=== PATIENT | male | born 1935 | race Caucasian/White ===

== ENCOUNTER → 2018-02-05 10:41 | Outpatient (CLI) | payer MEDICARE, OTHER, SELFPAY ==
[2018-02-05 11:59] LABS: BUN Creatinine Ratio 26.2 (6-22); Blood Urea Nitrogen 34 mg/dL (9-20); Calcium 9.6 mg/dL (8.4-10.2); Carbon Dioxide 27 mmol/L (22-32); Chloride 99 mmol/L (98-107); Estimated Glomerular Filt Rate 53.1 mL/min (>60); Glucose 388 mg/dL (80-110); HEMOLYSIS < 15 (0-50); Potassium 4.9 mmol/L (3.4-5.1); Sodium 138 mmol/L (137-145)
[2018-02-05 12:02] LABS: Hemoglobin A1C% w Est Avg Glu 10.6 % (4.0-6.0)
== END ==
PROVIDERS: PCP Internal Medicine; Visit Provider Internal Medicine
DX: E11.9 Type 2 diabetes mellitus without complications (principal)
CPT/HCPCS: 36415; 80048; 83036

== ENCOUNTER → 2018-12-28 15:39 | Outpatient (CLI) | payer MEDICARE, OTHER, SELFPAY ==
--- NOTE | 2018-12-28 | DI.MRI.S_ITS ---
PROCEDURE: MR RUN OFF 3 STAGES ABD START INDICATIONS: Cramp and spasm in left calf TECHNIQUE: Precontrast axial and coronal TruFISP acquired through the abdomen and pelvis. Multi-station dynamic coronal MRA using Care Bolus timing from the kidneys to the ankles during the administration of contrast, with 3-dimensional maximum intensity projection (MIP) reformats constructed. COMPARISON: None. FINDINGS: Image quality: Excellent. ABDOMEN: Aorta: Aorta is normal in caliber and is patent. Renal arteries: Renal arteries all appear patent. Extravascular soft tissues: Visualized solid organs are normal in size on limited pre-contrast images. Bowel loops are normal in caliber. No free fluid. No retroperitoneal or mesenteric adenopathy by size criteria. No ventral hernias. Bones: Marrow demonstrates normal overall signal. PELVIS AND BILATERAL LOWER EXTREMITIES: Right sided vessels: Common and external iliac arteries are patent. 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 Common and profunda femoral arteries are patent. There are mild multifocal stenoses of the mid and distal superficial femoral artery. Multifocal moderate stenoses of the above end below knee popliteal artery are present. The runoff vessels are not well seen secondary to motion artifact. Left sided vessels: Common and internal iliac arteries are patent. External iliac artery demonstrates mild stenosis proximally, and is otherwise patent. The common and profunda femoral arteries are patent. There is a high-grade focal stenosis within the distal left superficial femoral artery. There is a high-grade focal stenosis within the below knee popliteal artery. Above-knee popliteal artery is patent. Runoff vessels are not well-seen secondary to motion artifact. IMPRESSION: 1. No significant inflow stenosis bilaterally. 2. 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 These would be amenable to percutaneous endovascular therapy, if clinically indicated. Findings discussed with Dr. Spicer's medical billing assistant on 12.28.18 at 1655 hrs. Dictated by: Imani Macias M.D. on 12/28/2018 at 17:01 Approved by: Imani Macias M.D. on 12/28/2018 at 17:01
== END ==
PROVIDERS: PCP Internal Medicine; Visit Provider Internal Medicine
DX: R25.2 Cramp and spasm (principal); I70.203 Unspecified atherosclerosis of native arteries of extremities, bilateral legs
CPT/HCPCS: C8902; C8912; C8918; A9579

== ENCOUNTER → 2020-07-24 19:11 | Outpatient (ROUT) | payer MEDICARE, OTHER, SELFPAY ==
[2020-07-24 19:38] LABS: Aspartate Aminotransferase 36 IU/L (17-59); BUN Creatinine Ratio 19.5 (6-22); Blood Urea Nitrogen 26 mg/dL (9-20); Calcium 9.2 mg/dL (8.4-10.2); Carbon Dioxide 29 mmol/L (22-32); Chloride 106 mmol/L (98-107); Cholesterol 143 mg/dL (140-199); Estimated Glomerular Filt Rate 51.5 mL/min (>60); Glucose 127 mg/dL (80-110); HDL Cholesterol 37 mg/dL (40-60); HEMOLYSIS 17 (0-50); LDL Cholesterol Calculated 79 mg/dL (<100); Potassium 4.2 mmol/L (3.4-5.1); Sodium 140 mmol/L (137-145); Triglycerides 136 mg/dL (35-150)
[2020-07-24 19:41] LABS: Add Manual Diff / Slide Review NO; Basophils Absolute Auto 0 /uL (0-100); Basophils Percent Auto 0.3 % (0-2); Eosinophils Absolute Auto 300 /uL (0-450); Hematocrit 45.4 % (41-53); Hemoglobin 14.7 g/dL (13.5-17.5); Lymphocytes Absolute Auto 2200 /uL (1100-4500); Lymphocytes Percent Auto 32.6 % (25-40); Mean Corpuscular HGB Conc 32.5 % (30-36); Mean Corpuscular Hemoglobin 30.6 PG (26-34); Mean Corpuscular Volume 94.2 fL (80-100); Monocytes Absolute Auto 600 /uL (0-900); Monocytes Percent Auto 8.5 % (3-14); Neutrophils Absolute Auto 3700 /uL (1500-7000); Neutrophils Percent Auto 54.6 % (50-75); Platelet Count 149 X10^3/uL (150-400); Red Blood Cell Count 4.81 X10^6/uL (4.5-5.9); Red Cell Distribution Width 13.9 % (11.6-14.8); White Blood Cell Count 6.8 X10^3/uL (4.5-11.0)
[2020-07-24 20:14] LABS: TSH w/ Reflex to FT4 8.65 uIU/mL (0.47-4.68)
[2020-07-24 20:59] LABS: Free T4, Direct Thyroxine 0.93 ng/dL (0.78-2.19)
== END ==
PROVIDERS: PCP Internal Medicine; Visit Provider Internal Medicine
DX: I48.0 Paroxysmal atrial fibrillation (principal); I10 Essential (primary) hypertension; E78.2 Mixed hyperlipidemia
CPT/HCPCS: 80048; 80061; 84439; 84443; 84450; 85025

== ENCOUNTER → 2022-05-17 12:39 | Outpatient (CLI) | payer MEDICARE, OTHER, SELFPAY ==
--- NOTE | 2022-05-17 12:42 | DI.RAD.S_ITS ---
PROCEDURE: XR LUMBAR SPINE 2-3V INDICATIONS: Low back pain, unspecified TECHNIQUE: Three views of the lumbar spine were acquired. COMPARISON: [facility], CT, CT CHEST ABDOMEN PELVIS WITHOUT CONTRAST, 02/07/2021, 18:41. [facility], CR, L-SPINE 2-3 VIEWS, 06/19/2015, 9:46. FINDINGS: Bones: 5 [id number] vertebrae are present. There is mild grade 1 retrolisthesis of L3 on L4 measuring 3 mm and grade 1 retrolisthesis of L2 on L3 measuring 5 mm and grade 1 retrolisthesis of L5-1 on L2 measuring 4 mm. No vertebral body compression fractures. No suspicious bony lesions. Multilevel disc space narrowing degenerative endplate changes are seen. Multilevel facet hypertrophy is seen throughout the lumbar spine. Soft tissues: A DVT filter is present projecting over the right paraspinal region. Overlying bowel gas pattern is normal. No suspicious soft tissue calcifications. Aortic atherosclerotic calcifications are present. 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 No acute osseous abnormality. Dictated by: Deonte Styles M.D. on 05/17/2022 at 17:19 Approved by: Deonte Styles M.D. on 05/17/2022 at 17:22
== END ==
PROVIDERS: PCP Internal Medicine; Referring Provider Internal Medicine; Visit Provider Internal Medicine
DX: M47.816 Spondylosis without myelopathy or radiculopathy, lumbar region (principal); M43.16 Spondylolisthesis, lumbar region; M54.50 Low back pain, unspecified
CPT/HCPCS: 72100